=== PATIENT | female | born 1960 | race Caucasian/White ===

== ENCOUNTER 2018-06-12 14:47 | Inpatient (IN) | payer BC ==
[2018-06-12 17:39] LABS: Arterial Blood Carboxyhemoglob 5.5 % (0-1.5); Blood Gas Oxyhemoglobin 83.1 % (94-97); Blood O2 Saturation 89.2 % (92-98.5)
[2018-06-12 17:40] LABS: Absolute Lymphocytes (CBC) 2.2 K/uL (0.7-4.9); Absolute Monocytes 0.4 K/uL (0.1-1.3); Absolute Neutrophil 4.9 K/uL (1.8-8.0); Eosinophils % 2.9 % (0-4.4); Hematocrit 47.1 % (36.0-45.0); Lymphocytes % 28.3 % (15.3-44.8); MPV 8.4 fL (7.6-11.3); Monocytes % 5.1 % (3.3-12.3); RBC Red Blood Cell Count 5.25 M/uL (3.86-4.86)
[2018-06-12 17:42] LABS: Protime INR 0.99
[2018-06-12 18:02] LABS: ALT/SGPT 27 U/L (12-78); AST/SGOT 18 U/L (15-37); Albumin 3.6 g/dL (3.4-5.0); Alkaline Phosphatase 101 U/L (45-117); BUN Blood Urea Nitrogen 6 mg/dL (7-18); Bicarbonate 27 mmol/L (21-32); Bilirubin Direct < 0.1 mg/dL (0-0.2); Bilirubin Total 0.3 mg/dL (0.2-1.0); Glucose Level 129 mg/dL (74-106); Magnesium 2.2 mg/dL (1.8-2.4); NT PRO-BNP 37 pg/mL (<125); Potassium 3.3 mmol/L (3.5-5.1); Protein, Total 8.1 g/dL (6.4-8.2); Sodium Level 137 mmol/L (136-145); Troponin (Emerg Dept Use Only) < 0.02 ng/mL (0.0-0.045)
--- NOTE | 2018-06-12 18:26 | RAD REPORT ---
EXAM DESCRIPTION: RAD - Chest Single View - 06/12/2018 5:57 pm CLINICAL HISTORY: Shortness of breath COMPARISON: November 2016 TECHNIQUE: AP portable chest image was obtained 1748 hours . FINDINGS: Hazy interstitial and alveolar opacities are present in the mid and lower lung jenkins cecille lar or slightly worse than seen November 2016. Trachea is midline. Heart and vasculature are normal. No m easurable pleural effusion and no pneumothorax. No acute bony abnormality seen. No acute aortic findi ngs suspected. IMPRESSION: Interstitial and alveolar opacification in the lung jenkins slightly worse than November 2016 . Heart size and vasculature are normal. Pneumonia is favored over failure/ volume overload.
[2018-06-12] MEDS ORDERED: Levofloxacin 750mg IV 750 MG/150 ML BAG IV ONE (18:57)
[2018-06-12] MEDS ORDERED: LEVALBUTEROL 1.25 MG/3 ML NEB ONE (18:57)
--- NOTE | 2018-06-12 19:28 | ER ---
Nurse's Notes [facility] Name: Smita Beverly Age: 57 yrs Sex: Female : 1960 Arrival Date: 06/12/2018 Time: 14:50 Bed 13 Private MD: Imer Romo Diagnosis: Pneumonia due to other specified bacteria Presentation: 06/12 14:52 Presenting complaint: Patient states: i have this SOB for along time already but its hj getting worse, reports cough, congestion; denies fever and chills; reports dizziness and tightness on the upper abd; O2 sat at home per pt is 88%; on triage 94% on RA:. Transition of care: patient was not received from another setting of care. Onset of symptoms was June 12, 2018. Risk Assessment: Do you want to hurt yourself or someone else? Patient reports no desire to harm self or others. Initial Sepsis Screen: Does the patient meet any 2 criteria? No. Patient's initial sepsis screen is negative. Does the patient have a suspected source of infection? No. Patient's initial sepsis screen is negative. Care prior to arrival: None. 14:52 Method Of Arrival: Ambulatory 14:52 Acuity: ZEINA 3 hj Triage Assessment: 14:54 General: Appears in no apparent distress. uncomfortable, Behavior is calm, cooperative, hj appropriate for age. 14:55 Respiratory: Reports shortness of breath Onset: The symptoms/episode began/occurred hj gradually, the patient has mild shortness of breath. Historical: - Allergies: 14:54 No Known Allergies; hj - Home Meds: 14:54 Abilify 5 mg Oral tab 1 tab once daily [Active]; Cogentin Oral 1 mg daily [Active]; hj - PMHx: 14:54 Anxiety; Depression; hj - PSHx: 14:54 None; hj - Immunization history:: Adult Immunizations up to date. - Social history:: Smoking status: Patient uses tobacco products, Patient/guardian denies using alcohol. - Ebola Screening: : Patient negative for fever greater than or equal to 101.5 degrees Fahrenheit, and additional compatible Ebola Virus Disease symptoms Patient denies exposure to infectious person Patient denies travel to an Ebola-affected area in the 21 days before illness onset. Screenin:54 Abuse screen: Denies threats or abuse. Denies injuries from another. Nutritional hj screening: No deficits noted. Tuberculosis screening: No symptoms or risk factors identified. Fall Risk None identified. Assessment: 14:54 Pain: Complains of pain in abdomen. Cardiovascular: Rhythm is. Respiratory: Airway is hj patent Respiratory effort is even, unlabored, Breath sounds are clear. 17:00 General: Appears in no apparent distress. uncomfortable, Behavior is calm, cooperative, jl7 appropriate for age. Pain: Complains of pain in right upper quadrant and left upper quadrant Quality of pain is described as pressure, Pain began years ago. Neuro: Level of Consciousness is awake, alert, obeys commands, Oriented to person, place, time, situation. Cardiovascular: Heart tones S1 S2 present Patient's skin is warm and dry. Respiratory: Airway is patent Respiratory effort is even, unlabored, Respiratory pattern is regular, symmetrical. GI: Abdomen is round non-distended, Bowel sounds present X 4 quads. Abd is soft and non tender X 4 quads. : No signs and/or symptoms were reported regarding the genitourinary system. EENT: No signs and/or symptoms were reported regarding the EENT system. Derm: Skin is pink, warm \T\ dry. Musculoskeletal: No signs and/or symptoms reported regarding the musculoskeletal system. 19:11 Reassessment: Patient appears in no apparent distress at this time. Patient and/or cc3 family updated on plan of care and expected duration. Pain level reassessed. Patient is alert, oriented x 3, equal unlabored respirations, skin warm/dry/pink. Received this female patient from morning shift THONG Choi as a case of pneumonia; with IV cannula gauge 20 at the right ACV with ongoing IV antibiotic of Levofloxacin 750 mg infusing well, with ongoing nebulization as well. 20:15 Reassessment: Patient appears in no apparent distress at this time. Patient and/or cc3 family updated on plan of care and expected duration. Pain level reassessed. Patient is alert, oriented x 3, equal unlabored respirations, skin warm/dry/pink. 21:10 Reassessment: Patient appears in no apparent distress at this time. Patient and/or cc3 family updated on plan of care and expected duration. Pain level reassessed. Patient is alert, oriented x 3, equal unlabored respirations, skin warm/dry/pink. Room assigned to 416, called for report but was told that the nurse who will receive the patient will call me back. 21:30 Reassessment: Called again for report but was just put on hold for a long time, charge cc3 nurse Melly informed. 21:54 Reassessment: Patient appears in no apparent distress at this time. Patient and/or cc3 family updated on plan of care and expected duration. Pain level reassessed. Patient is alert, oriented x 3, equal unlabored respirations, skin warm/dry/pink. called again for report and as per staff named Hermelinda they will just call back. 22:25 Reassessment: Patient appears in no apparent distress at this time. Patient and/or cc3 family updated on plan of care and expected duration. Pain level reassessed. Patient is alert, oriented x 3, equal unlabored respirations, skin warm/dry/pink. called for report and handed over to Julia Madsen for continuity of care. 22:42 Reassessment: Patient left ER for admission vitally stable by wheelchair escorted by ED cc3 moon Goyal and the patient's . Vital Signs: 14:55 BP 110 / 68; Pulse 97; Resp 18; Temp 98.1(TE); Pulse Ox 94% on R/A; Weight 88.45 kg; hj Height 5 ft. 2 in. (157.48 cm); Pain 3/10; 17:00 BP 110 / 60; Pulse 83; Resp 21; Pulse Ox 89% on R/A; jl7 17:48 BP 103 / 72; Pulse 89; Resp 22; Pulse Ox 93% on 2 lpm NC; jl7 19:08 BP 122 / 49; Pulse 78; Resp 20 S; Pulse Ox 99% ; cc3 20:45 BP 112 / 47; Pulse 90; Resp 19; Pulse Ox 93% on 2 lpm NC; cc3 21:17 BP 109 / 51; Pulse 85; Resp 17 S; Pulse Ox 93% on 2 lpm NC; cc3 22:21 BP 110 / 65; Pulse 84; Resp 19 S; Pulse Ox 93% on 2 lpm NC; cc3 14:55 Body Mass Index 35.67 (88.45 kg, 157.48 cm) hj 19:08 ongoing nebulization cc3 ED Course: 14:50 Patient arrived in ED. mr 14:50 Imer Romo MD is Private Physician. mr 14:53 Triage completed. hj 14:55 Arm band placed on right wrist. hj 14:55 Patient has correct armband on for positive identification. Bed in low position. Call hj light in reach. Side rails up X 1. 16:32 Kayode Cordova PA is PHCP. jr8 16:32 Yaw Espana MD is Attending Physician. jr8 16:36 Steph Maddox RN is Primary Nurse. jl7 17:00 compliance monitor on. Pulse ox on. NIBP on. jl7 17:00 Initial lab(s) drawn, by me, sent to lab. Inserted saline lock: 20 gauge in right jl7 antecubital area, using aseptic technique. Blood collected. 17:55 X-ray completed. Portable x-ray completed in exam room. Patient tolerated procedure az well. 17:56 XRAY Chest (1 view) In Process Unspecified. EDMI 18:33 EKG done, by ED staff, reviewed by Kayode STEVEN. [facility] 18:45 First set of blood cultures drawn by me. [facility] 19:28 Diana Garnett MD is Hospitalizing Provider. jr8 22:25 No provider procedures requiring assistance completed. Patient admitted, IV remains in cc3 place. Administered Medications: 18:57 Drug: LevaQUIN 750 mg Volume: 150 ml; Route: IVPB; Infused Over: 90 mins; Site: right jl7 antecubital; 20:35 Follow up: Response: No adverse reaction; IV Status: Completed infusion; IV Intake: cc3 150ml 18:57 Drug: Xopenex 1.25 mg Route: Inhalation; jl7 Intake: 20:35 IV: 150ml; Total: 150ml. cc3 Outcome: 19:28 Decision to Hospitalize by Provider. jr8 22:41 Admitted to Tele accompanied by tech, family with patient, via wheelchair, room 416, cc3 with oxygen, with chart, Report called to Julia Madsen 22:41 Condition: stable 22:41 Instructed on the need for admit, Demonstrated understanding of instructions. 22:42 Patient left the ED. cc3 Signatures: Dispatcher [employer] EDMI Ann Brown Kayode Cordova PA PA [facility] Leonides Seay RN RN hj Martinez, Maria [facility] Steph Maddox RN RN jl7 Sherie Limon cc3 [place] Corrections: (The following items were deleted from the chart) 14:56 14:52 Presenting complaint: Patient states: i have this SOB for along time already but hj its getting worse, reports cough, congestion; denies fever and chills; O2 sat at home per pt is 88%; on triage 94% on RA: hj 22:24 21:30 Reassessment: Called again for report but was just put on hold for a long time. cc3 cc3 22:40 22:23 Reassessment: Patient appears in no apparent distress at this time. Patient cc3 and/or family updated on plan of care and expected duration. Pain level reassessed. Patient is alert, oriented x 3, equal unlabored respirations, skin warm/dry/pink. Called again for report was just put on hold for a long time, charge nurse Melly varghese. cc3 23:55 22:43 Reassessment: Patient left ER for admission vitally stable by wheelchair escorted cc3 by manufacturing quality technicianmoon Goyal and the patient's . cc3
--- NOTE | 2018-06-12 19:29 | EDPHYS ---
Physician Documentation [facility] Name: Smita Beverly Age: 57 yrs Sex: Female : 1960 Arrival Date: 06/12/2018 Time: 14:50 Bed 13 Private MD: Imer Romo ED Physician Yaw Espana HPI: 06/12 17:25 This 57 yrs old Female presents to ER via Ambulatory with complaints of jr8 Breathing Difficulty. 17:25 Patient stated that for the past couple of years has had difficulty breathing at rest jr8 and with exertion. Feels dizzy and falls asleep frequently. Has had syncope with symptoms in past as well. Seeing PCP and had sleep study done but has not seen cardiology, pulmonology, or neurology. Came to ED today for persistent cough that has developed . Historical: - Allergies: 14:54 No Known Allergies; hj - Home Meds: 14:54 Abilify 5 mg Oral tab 1 tab once daily [Active]; Cogentin Oral 1 mg daily [Active]; hj - PMHx: 14:54 Anxiety; Depression; hj - PSHx: 14:54 None; hj - Immunization history:: Adult Immunizations up to date. - Social history:: Smoking status: Patient uses tobacco products, Patient/guardian denies using alcohol. - Ebola Screening: : Patient negative for fever greater than or equal to 101.5 degrees Fahrenheit, and additional compatible Ebola Virus Disease symptoms Patient denies exposure to infectious person Patient denies travel to an Ebola-affected area in the 21 days before illness onset. ROS: 17:25 Eyes: Negative for injury, pain, redness, and discharge, ENT: Negative for injury, jr8 pain, and discharge, Neck: Negative for injury, pain, and swelling, Cardiovascular: Negative for chest pain, palpitations, and edema, Abdomen/GI: Negative for abdominal pain, nausea, vomiting, diarrhea, and constipation, Back: Negative for injury and pain, MS/Extremity: Negative for injury and deformity, Skin: Negative for injury, rash, and discoloration. 17:25 Respiratory: Positive for cough, shortness of breath, wheezing. 17:25 Neuro: Positive for dizziness, syncope. Exam: 17:25 Eyes: Pupils equal round and reactive to light, extra-ocular motions intact. Lids and jr8 lashes normal. Conjunctiva and sclera are non-icteric and not injected. Cornea within normal limits. Periorbital areas with no swelling, redness, or edema. ENT: Nares patent. No nasal discharge, no septal abnormalities noted. Tympanic membranes are normal and external auditory canals are clear. Oropharynx with no redness, swelling, or masses, exudates, or evidence of obstruction, uvula midline. Mucous membranes moist. Neck: Trachea midline, no thyromegaly or masses palpated, and no cervical lymphadenopathy. Supple, full range of motion without nuchal rigidity, or vertebral point tenderness. No Meningismus. Cardiovascular: Regular rate and rhythm with a normal S1 and S2. No gallops, murmurs, or rubs. Normal PMI, no JVD. No pulse deficits. Respiratory: Lungs have equal breath sounds bilaterally, clear to auscultation and percussion. No rales, rhonchi or wheezes noted. No increased work of breathing, no retractions or nasal flaring. Abdomen/GI: Soft, non-tender, with normal bowel sounds. No distension or tympany. No guarding or rebound. No evidence of tenderness throughout. Back: No spinal tenderness. No costovertebral tenderness. Full range of motion. Skin: Warm, dry with normal turgor. Normal color with no rashes, no lesions, and no evidence of cellulitis. Neuro: Awake and alert, GCS 15, oriented to person, place, time, and situation. Cranial nerves II-XII grossly intact. Motor strength 5/5 in all extremities. Sensory grossly intact. Cerebellar exam normal. Normal gait. 17:25 MS/ Extremity: Pulses equal, no cyanosis. Neurovascular intact. Full, normal range of motion. Clubbing to finger tips bilaterally Vital Signs: 14:55 BP 110 / 68; Pulse 97; Resp 18; Temp 98.1(TE); Pulse Ox 94% on R/A; Weight 88.45 kg; hj Height 5 ft. 2 in. (157.48 cm); Pain 3/10; 17:00 BP 110 / 60; Pulse 83; Resp 21; Pulse Ox 89% on R/A; jl7 17:48 BP 103 / 72; Pulse 89; Resp 22; Pulse Ox 93% on 2 lpm NC; jl7 19:08 BP 122 / 49; Pulse 78; Resp 20 S; Pulse Ox 99% ; cc3 20:45 BP 112 / 47; Pulse 90; Resp 19; Pulse Ox 93% on 2 lpm NC; cc3 21:17 BP 109 / 51; Pulse 85; Resp 17 S; Pulse Ox 93% on 2 lpm NC; cc3 22:21 BP 110 / 65; Pulse 84; Resp 19 S; Pulse Ox 93% on 2 lpm NC; cc3 14:55 Body Mass Index 35.67 (88.45 kg, 157.48 cm) hj 19:08 ongoing nebulization cc3 MDM: 16:32 Patient medically screened. [facility] 19:27 Data reviewed: vital signs, nurses notes, lab test result(s), EKG, radiologic studies, [facility] plain films, and as a result, I will admit patient. Data interpreted: Pulse oximetry: on room air is 89 %. Interpretation: hypoxia. Counseling: I had a detailed discussion with the patient and/or guardian regarding: the historical points, exam findings, and any diagnostic results supporting the discharge/admit diagnosis, lab results, radiology results, the need for further work-up and treatment in the hospital. 06/12 17:16 Order name: Basic Metabolic Panel [facility] 06/12 17:16 Order name: CBC with Diff [facility] 06/12 17:16 Order name: LFT's [facility] 06/12 17:16 Order name: Magnesium; Complete Time: 18:14 [facility] 06/12 17:16 Order name: NT PRO-BNP; Complete Time: 18:14 [facility] 06/12 17:16 Order name: PT-INR; Complete Time: 18:14 [facility] 06/12 17:16 Order name: Troponin (emerg Dept Use Only); Complete Time: 18:14 [facility] 06/12 17:16 Order name: XRAY Chest (1 view); Complete Time: 18:37 [facility] 06/12 17:16 Order name: ABG; Complete Time: 18:14 [facility] 06/12 17:16 Order name: Basic Metabolic Panel; Complete Time: 18:14 [facility] 06/12 17:16 Order name: CBC with Automated Diff; Complete Time: 18:14 [facility] 06/12 17:16 Order name: Liver (Hepatic) Function; Complete Time: 18:14 [facility] 06/12 18:38 Order name: Blood Culture Adult (2) [facility] 06/12 17:16 Order name: EKG; Complete Time: 17:16 06/12 17:16 Order name: Cardiac monitoring; Complete Time: 17:58 06/12 17:16 Order name: EKG - Nurse/Tech; Complete Time: 17:58 06/12 17:16 Order name: IV Saline Lock; Complete Time: 17:58 06/12 17:16 Order name: Labs collected and sent; Complete Time: 17:58 06/12 17:16 Order name: O2 Per Protocol; Complete Time: 17:58 06/12 17:16 Order name: O2 Sat Monitoring; Complete Time: 17:58 Administered Medications: 18:57 Drug: LevaQUIN 750 mg Volume: 150 ml; Route: IVPB; Infused Over: 90 mins; Site: right jl7 antecubital; 20:35 Follow up: Response: No adverse reaction; IV Status: Completed infusion; IV Intake: cc3 150ml 18:57 Drug: Xopenex 1.25 mg Route: Inhalation; [facility] Disposition: 06/13 15:52 Co-signature as Attending Physician, Yaw Espana MD I agree with the assessment and kdr plan of care. Disposition: 06/12/18 19:28 Hospitalization ordered by Diana Garnett for Inpatient Admission. Preliminary diagnosis is Pneumonia due to other specified bacteria. - Bed requested for Telemetry/MedSurg (Inpatient). - Status is Inpatient Admission. cc3 - Condition is Stable. - Problem is new. - Symptoms have improved. UTI on Admission? No Signatures: Dispatcher [employer] EDRI Olivia Lopez RN THONG Yaw Espana MD MD kdr Roszak, Josh, PA PA jr8 Leonides Seay RN Steph Esteban RN RN jl7 Sherie Limon cc3 Corrections: (The following items were deleted from the chart) 06/12 19:51 19:28 Hospitalization Ordered by Diana Garnett MD for Inpatient Admission. Preliminary diagnosis is Pneumonia due to other specified bacteria. Bed requested for Telemetry/MedSurg (Inpatient). Status is Inpatient Admission. Condition is Stable. Problem is new. Symptoms have improved. UTI on Admission? No. jr8 22:42 19:51 06/12/2018 19:28 Hospitalization Ordered by Diana Garnett MD for Inpatient cc3 Admission. Preliminary diagnosis is Pneumonia due to other specified bacteria. Bed requested for Telemetry/MedSurg (Inpatient). Status is Inpatient Admission. Condition is Stable. Problem is new. Symptoms have improved. UTI on Admission? No. mw
[2018-06-12] MEDS ORDERED: ONDANSETRON 4 MG/2 ML VIAL IV PRN (20:38)
[2018-06-12] MEDS ORDERED: ACETAMINOPHEN 500 MG TAB PO PRN (20:38)
[2018-06-12] MEDS ORDERED: ALBUTEROL 2.5 MG/3 ML NEB SOL NEB SCH (21:00)
[2018-06-12] MEDS ORDERED: NA CHLORIDE 0.9% 1,000 ML IV SCH (21:00)
[2018-06-13 00:14] VITALS: BMI 37.1
[2018-06-13] MEDS ORDERED: POTASSIUM 25 MEQ EFFERV TAB PO ONE (00:28)
[2018-06-13] MEDS: IPRATROPIUM BROM 0.5MG/2.5ML NEB SCH ×2 (01:55→08:01)
[2018-06-13 06:04] LABS: Urine Appearance CLOUDY; Urine Bilirubin NEGATIVE (NEG); Urine Blood NEGATIVE (NEG); Urine Color YELLOW; Urine Glucose NEGATIVE (NEG); Urine Protein NEGATIVE (NEG); Urine Urobilinogen 0.2 mg/dL (0.2-1.0)
[2018-06-13 06:11] LABS: Arterial Blood Carboxyhemoglob 2.9 % (0-1.5); Blood Gas Oxyhemoglobin 92.3 % (94-97); Blood O2 Saturation 95.8 % (92-98.5)
[2018-06-13 06:18] LABS: Absolute Lymphocytes (CBC) 2.5 K/uL (0.7-4.9); Absolute Monocytes 0.6 K/uL (0.1-1.3); Absolute Neutrophil 3.9 K/uL (1.8-8.0); Basophils % 1.2 % (0-1.3); Eosinophils % 3.1 % (0-4.4); Hematocrit 43.4 % (36.0-45.0); Lymphocytes % 34.5 % (15.3-44.8); MPV 8.1 fL (7.6-11.3); Monocytes % 8.3 % (3.3-12.3); RBC Red Blood Cell Count 4.81 M/uL (3.86-4.86)
[2018-06-13 06:19] LABS: Urine Microscopic Reflex ORDER UMIC
[2018-06-13 06:43] LABS: Albumin 3.1 g/dL (3.4-5.0); Bilirubin Total 0.2 mg/dL (0.2-1.0); Phosphorus 3.9 mg/dL (2.5-4.9); Potassium 4.4 mmol/L (3.5-5.1); Protein, Total 7.1 g/dL (6.4-8.2)
[2018-06-13 06:44] LABS: Urine Bacteria >50 /HPF (<20); Urine Culture Reflex Order REFLEXED
[2018-06-13] MEDS ORDERED: ALBUTEROL 2.5 MG/3 ML NEB SOL NEB PRN (08:41)
[2018-06-13] MEDS ORDERED: IPRATROPIUM BROM 0.5MG/2.5ML NEB PRN (08:41)
--- NOTE | 2018-06-13 08:47 | EKG ---
Test Date: 2018-06-12 Test Time: 18:05:06 Chief Enterprise Architect: DEANDRE MEASUREMENT RESULTS: Intervals: Rate: 79 IN: 130 QRSD: 82 QT: 400 QTc: 458 [place]: P: 42 IN: 130 QRS: 56 T: 38 INTERPRETIVE STATEMENTS: Normal sinus rhythm Normal ECG Compared to ECG 11/15/2016 13:10:53 Atrial premature complex(es) no longer present Electronically Signed On 06-13-18 08:46:33 INFRASTRUCTURE ADMINISTRATOR by Rush Mcfadden
--- NOTE | 2018-06-13 09:00 | RAD REPORT ---
EXAM DESCRIPTION: CT - Thorax W/ Con - 06/13/2018 7:54 am CLINICAL HISTORY: Shortness of breath, pulmonary fibrosis, COPD COMPARISON: Chest film June 12 TECHNIQUE: Dynamically enhanced 5 mm thick images of the chest were obtained during administration o f 100 mL non-ionic IV contrast. All CT scans are performed using dose optimization technique as appropriate and may include automated exposure control or mA/KV adjustment according to patient size. FINDINGS: Prominent interstitial markings are scattered throughout all lung jenkins. Patchy areas of airspace opacification and ground-glass opacification noted in the anterior mid lung jenkins and both lower lung jenkins. A 2.5 centimeter cystic cavity is seen in the lower lung field on the left. No one dense mass consolidation or clearly malignant mass seen. No pleural thickening or pleural effusion. No pneumothorax. No chest wall mass or abnormal axillary lymphadenopathy. Patient has multiple mediastinal and hilar lymph nodes up to 2.5 cm in size. No cardiomegaly or pericardial effusion. Limited upper abdomen imaging shows fatty infiltration of a partially imaged liver. IMPRESSION: Extensive interstitial lung disease with scattered alveolar opacification and ground-gla ss opacification. Multiple abnormal mediastinal and hilar lymph nodes. Patient has history of chronic interstitial lung disease. No prior CT imaging for comparison. Patient likely has an acute infectious process superimposed on chronic lung disease. Lymph nodes may be reactive ; however, repeat CT chest imaging is needed in 2-3 months to determine if lymph nodes re solve after medical management.
[2018-06-13] MEDS: NICOTINE 21 MG/PAT TD SCH (09:46)
[2018-06-13] MEDS: predniSONE 20 MG TAB PO SCH ×2 (09:47→20:29)
[2018-06-13] MEDS: ARIPiprazole 5 MG TAB PO SCH (09:47)
[2018-06-13] MEDS: FLUOXETINE 20 MG CAP PO SCH ×2 (09:47→20:29)
[2018-06-13] MEDS: BENZTROPINE 1 MG TAB PO SCH (09:47)
[2018-06-13] MEDS: FAMOTIDINE 20 MG TAB PO SCH ×2 (09:47→20:30)
--- NOTE | 2018-06-13 10:03 | P.HP ---
Certification for Inpatient Patient admitted to: Inpatient With expected LOS: >2 Midnights Patient will require the following post-hospital care: None Practitioner: I am a practitioner with admitting privileges, knowledge of patient current condition, hospital course, and medical plan of care. Services: Services provided to patient in accordance with Admission requirements found in Title 42 Section 412.3 of the Code of Federal Regulations Patient History Date of Service: 06/12/18 Reason for admission: shortness of breath History of Present Illness: Patient is a 57-year-old female who came the hospital with difficulty breathing. Patient has had a similar episode about a year ago when she was seen in the ER. She was advised to follow up with her primary care provider at that time. She was seen by her primary care provider and she was worked up for sleep apnea. she currently presents with similar complaints as a year ago. She is short of breath and having a hard time catching her breath. On physical examination she has dry crackles as well as clubbing. I believe she may have some interstitial lung disease and probably has undiagnosed idiopathic pulmonary fibrosis. She will need to be admitted to the hospital for further workup for her lung disease. Allergies No Known Allergies Allergy (Unverified 06/13/18 08:51) Home Medications: Aripiprazole [Abilify] 15 mg PO DAILY 06/12/18 Benztropine Mesylate 0.5 mg PO DAILY 06/12/18 Fluoxetine HCl [Prozac] 40 mg PO BID 06/12/18 - Past Medical/Surgical History Has patient received pneumonia vaccine in the past: No Diabetic: No -: manic depression -: COPD -: sleep apnea -: anxiety -: cyst removed from ovary when 24 yrs old - Family History Mother Medical History: Heart disease, Hypertension, Lung disease Father Medical History: Heart disease - Social History Smoking Status: Current every day smoker Alcohol use: No CD- Drugs: No Caffeine use: Yes Place of Residence: Home Review of Systems 10-point ROS is otherwise unremarkable Physical Examination - Vital Signs Temperature: 97.8 F Blood Pressure: 115/54 Pulse: 76 Respirations: 18 Pulse Ox (%): 95 - Physical Exam General: Alert, In no apparent distress, Oriented x3 HEENT: Atraumatic, PERRLA, Mucous membr. moist/pink, EOMI, Sclerae nonicteric Neck: Supple, 2+ carotid pulse no bruit, No LAD, Without JVD or thyroid abnormality Respiratory: Crackles/rales Cardiovascular: Regular rate/rhythm, Normal S1 S2, No murmurs Gastrointestinal: Normal bowel sounds, Soft and benign, Non-distended, No tenderness Musculoskeletal: No tenderness Integumentary: No rashes Neurological: Normal gait, Normal speech, Normal strength at 5/5 x4 extr, Normal tone, Sensation intact, Cranial nerves 3-12 intact, Normal affect Lymphatics: No axilla or inguinal lymphadenopathy - Studies Laboratory Data (last 24 hrs) 06/12/18 17:30: PT 11.7, INR 0.99 06/12/18 17:30: WBC 7.8, Hgb 15.8 H, Hct 47.1 H, Plt Count 301 06/12/18 17:30: Sodium 137, Potassium 3.3 L, BUN 6 L, Creatinine 0.73, Glucose 129 H, Magnesium 2.2, Total Bilirubin 0.3, AST 18, ALT 27, Alkaline Phosphatase 101 Assessment & Plan - Problems (Diagnosis) (1) Interstitial lung disease Current Visit: Yes Status: Acute (2) IPF (idiopathic pulmonary fibrosis) Current Visit: Yes Status: Acute (3) Hypoxemia Current Visit: Yes Status: Acute - Plan -nebs, steroids, and antibiotics -O2 per protocol. -she will probably benefit from high-resolution CT -outpatient pulmonary function testing -repeat chest x-ray -pulmonary consultation Discharge Plan: Home Plan to discharge in: Greater than 2 days - Advance Directives Does patient have a Living Will: No Does patient have a Durable POA for Healthcare: No - Code Status/Comfort Care Code Status Assessed: Yes Code Status: Full Code Critical Care: No Time Spent Managing PTS Care (In Minutes): 50
--- NOTE | 2018-06-13 11:32 | P.PN ---
Subjective Date of Service: 06/13/18 Primary Care Provider: Dr. Romo Chief Complaint: shortness of breath Subjective: Other (Patient slightly improved.) Physical Examination - Vital Signs Temperature: 97.8 F Blood Pressure: 115/54 Pulse: 76 Respirations: 18 Pulse Ox (%): 95 - Physical Exam General: Alert, In no apparent distress, Oriented x3, Cooperative HEENT: Atraumatic Neck: Supple Respiratory: Expiratory wheezes, Inspiratory wheezes Cardiovascular: Normal pulses, Regular rate/rhythm Gastrointestinal: Normal bowel sounds, Soft and benign, Non-distended, No tenderness, No masses, No rebound, No guarding Musculoskeletal: No erythema, No tenderness, No warmth, Clubbing Integumentary: No tenderness/swelling, No erythema, No warmth, No cyanosis, Other (Clubbing noted to fingers) Neurological: Normal speech, Normal strength at 5/5 x4 extr, Normal tone, Normal affect - Studies Laboratory Data (last 24 hrs) 06/12/18 17:30: PT 11.7, INR 0.99 06/12/18 17:30: WBC 7.8, Hgb 15.8 H, Hct 47.1 H, Plt Count 301 06/12/18 17:30: Sodium 137, Potassium 3.3 L, BUN 6 L, Creatinine 0.73, Glucose 129 H, Magnesium 2.2, Total Bilirubin 0.3, AST 18, ALT 27, Alkaline Phosphatase 101 Medications List Reviewed: Yes Assessment & Plan Discharge Plan: Home Plan to discharge in: Greater than 2 days Physician Review Additional Text: Impression: Dyspnea secondary to COPD exacerbation likely with underlying chronic interstitial lung disease with possible underlying bilateral pneumonia with noted multiple abnormal mediastinal and hilar lymph nodes likely reactive in nature Tobacco abuse Clubbing of fingers Bipolar disorder GERD Obesity, BMI 37.1 Plan: Dyspnea secondary to COPD exacerbation likely with underlying chronic interstitial lung disease with possible underlying bilateral pneumonia with noted multiple abnormal mediastinal and hilar lymph nodes likely reactive in nature: Will continue with COPD medication and steroids. Will add Levaquin for possible underlying pneumonia. CT scan reviewed. Will continue with DVT prophylaxis. Pulmonology consulted for further recommendation. Will send culture for mycobacterium. Will continue to wean off oxygen. Maintain sats above 90%. Will continue to reassess. I will turn the service over to Dr. Moraes tomorrow. I will go over the plan of care with her. Tobacco abuse: Tobacco cessation addressed in detail. Will provide nicotine patch as needed. Clubbing of fingers: This is likely related to her pulmonary lung disease. Bipolar disorder: Will continue with her medications-Abilify, benztropine, Prozac. GERD: Will provide PPI. Obesity, BMI 37.1: Will address lifestyle modification education. Time Spent Managing Pts Care (In Minutes): 55
[2018-06-13] MEDS ORDERED: Levofloxacin500mg IV 500 MG/100 ML BAG IV SCH (12:00)
[2018-06-13] MEDS ORDERED: ENOXAPARIN 40 MG/0.4 ML SQ SCH (17:00)
[2018-06-14 05:57] LABS: Absolute Lymphocytes (CBC) 1.2 K/uL (0.7-4.9); Absolute Monocytes 0.3 K/uL (0.1-1.3); Absolute Neutrophil 6.9 K/uL (1.8-8.0); Basophils % 0.4 % (0-1.3); Eosinophils % 0.1 % (0-4.4); Hematocrit 46.1 % (36.0-45.0); Lymphocytes % 14.4 % (15.3-44.8); MPV 8.5 fL (7.6-11.3); Monocytes % 3.7 % (3.3-12.3); RBC Red Blood Cell Count 5.07 M/uL (3.86-4.86)
[2018-06-14 06:02] LABS: Magnesium 2.3 mg/dL (1.8-2.4); Potassium 4.9 mmol/L (3.5-5.1)
--- NOTE | 2018-06-14 08:25 | RAD REPORT ---
EXAM DESCRIPTION: RAD - Chest Pa And Lat (2 Views) - 06/14/2018 7:48 am CLINICAL HISTORY: COPD, shortness of breath COMPARISON: June 12, 2018, November 15, 2016 TECHNIQUE: PA and lateral views of the chest were obtained. FINDINGS: The lungs are fibrotic as a baseline matching the COPD history. Interstitial pattern remai ns prominent, increased above baseline. A few scattered areas of airspace opacification are present a s well. When adjusting for technique differences and inspiration differences, chest is not substanti ally different. Heart size is normal and central vasculature is within normal limits. No pleural eff usion or pneumothorax seen. No acute bony finding noted. No aortic abnormality. IMPRESSION: Interstitial and patchy alveolar pneumonia changes are present superimposed on chronic i nterstitial lung disease. Pattern is not substantially different from June 12 imaging.
--- NOTE | 2018-06-14 08:49 | P.CNS ---
Date of Consult: 06/14/18 Primary Care Provider: Dr. Romo Chief Complaint: shortness of breath History of Present Illness: Patient is 57 years of age complaining of progressive dyspnea he has been short of breath for the past couple of years got worse over the past week complaining of excessive did time somnolence at a recent blacked out lungs feel congested heavy smoker 1 pack a day also has a chronic persistent cough no prior history of cardiac disease DT scan very abnormal shows extensive interstitial lung disease with ground-glass changes no fever weight loss and no chest pain denies any seen arthritic pains no rashes Allergies No Known Allergies Allergy (Unverified 06/13/18 08:51) Home Medications: Aripiprazole [Abilify] 15 mg PO DAILY 06/12/18 Benztropine Mesylate 0.5 mg PO DAILY 06/12/18 Fluoxetine HCl [Prozac] 40 mg PO BID 06/12/18 - Past Medical/Surgical History Diabetic: No -: manic depression -: COPD -: sleep apnea -: anxiety -: cyst removed from ovary when 24 yrs old - Family History Mother Medical History: Heart disease, Hypertension, Lung disease Father Medical History: Heart disease - Social History Smoking Status: Current every day smoker Alcohol use: No CD- Drugs: No Caffeine use: Yes Place of Residence: Home Review of Systems 10-point ROS is otherwise unremarkable General: Weakness Respiratory: Cough, Shortness of Breath Physical Examination Temp Pulse Resp BP Pulse Ox 97 F 78 18 144/78 H 97 06/14/18 04:00 06/14/18 04:00 06/14/18 04:00 06/14/18 04:00 06/14/18 04:00 General: Alert, In no apparent distress, Oriented x3 HEENT: Atraumatic Neck: Supple Respiratory: Other (Patient has extensive bilateral crackles) Cardiovascular: No edema, Regular rate/rhythm Gastrointestinal: Normal bowel sounds, Soft and benign Musculoskeletal: No clubbing, No swelling Integumentary: No rashes, No breakdown - Problems (1) IPF (idiopathic pulmonary fibrosis) Current Visit: Yes Status: Acute Plan: Patient is 57 years of age admitted with a chronic progressive dyspnea with a cough she has extensive interstitial changes with ground-glass changes on both sides a heavy smoker I suspect that she has idiopathic pulmonary fibrosis of ordered a high-resolution CT scan of the chest patient was mildly hypoxic on admission agree with low-dose prednisone 10 mg twice a day for at least 2 weeks patient can be discharged home need a follow up as an outpatient possible bronchoscopy patient has some interstitial changes in November of [address] scan done the qualify for home O2 patient also probably has underlying COPD will need a bronchodilator consider Advair or Symbicort for now and I will arrange for her to follow up with me in 1 or 2 weeks he will need outpatient pulmonary function testing
--- NOTE | 2018-06-14 10:35 | RAD REPORT ---
EXAM DESCRIPTION: CT - Thorax Wo Con CLINICAL HISTORY: Chest pain Interstitial lung disease COMPARISON: Thorax W/ Con dated 06/13/2018 FINDINGS: Noncontrast high-resolution CT chest was performed. Centrilobular emphysema is present. Prominent subpleural interstitial lung opacities are noted greate st in the periphery of both lungs and with lower lobe predominance. Mild bronchiectasis is seen, like ly related to traction. This appears most severe in the lower lobes. Prominent air cyst is present in the left lower lobe measuring 22 mm. 9 mm air cyst is seen in the lingula. Mild mediastinal and hilar lymphadenopathy is present, the pretracheal region measuring 16 mm and in both hilar regions measuring up to 22 mm. A mediastinal mass is not seen. No pleural or pericardial f luid. No concerning bony finding. All CT scans are performed using dose optimization technique as appropriate and may include automated exposure control or mA/KV adjustment according to patient size. IMPRESSION: The findings are suspicious for UIP.Other differential consideration would include sarco idosis with fibrosis.
[2018-06-14] MEDS: NICOTINE 21 MG/PAT TD SCH (11:12)
[2018-06-14] MEDS: ARIPiprazole 5 MG TAB PO SCH (11:13)
[2018-06-14] MEDS: BENZTROPINE 1 MG TAB PO SCH (11:14)
[2018-06-14] MEDS: FLUOXETINE 20 MG CAP PO SCH (11:16)
[2018-06-14] MEDS: FAMOTIDINE 20 MG TAB PO SCH (11:16)
[2018-06-14] MEDS: predniSONE 20 MG TAB PO SCH (11:17)
[2018-06-14 12:11] VITALS: BP 132/73; TEMP 97.9
[2018-06-14 12:24] VITALS: O2SAT 95
--- NOTE | 2018-06-14 19:06 | P.DS ---
Admission Date: 06/12/18 Discharge Date: 06/14/18 Primary Care Provider: Dr. Romo Disposition: ROUTINE DISCHARGE Discharge Condition: GOOD Reason for Admission: shortness of breath - Problems (1) Hypoxemia Status: Acute (2) IPF (idiopathic pulmonary fibrosis) Status: Acute (3) Interstitial lung disease Status: Acute Brief History of Present Illness: Patient is a 57-year-old female who came the hospital with difficulty breathing. Patient has had a similar episode about a year ago when she was seen in the ER. She was advised to follow up with her primary care provider at that time. She was seen by her primary care provider and she was worked up for sleep apnea. she currently presents with similar complaints as a year ago. She is short of breath and having a hard time catching her breath. On physical examination she has dry crackles as well as clubbing. I believe she may have some interstitial lung disease and probably has undiagnosed idiopathic pulmonary fibrosis. She will need to be admitted to the hospital for further workup for her lung disease. Hospital Course: Overall during the hospital stay patient remained stable Patient was initially admitted to the hospital for shortness of breath. Was initially started on DuoNeb and steroid here in the hospital. Had marked improvement in her symptoms. Pulmonology was consulted who recommended the patient be continued on steroids along with duo nebs. Patient most likely after reviewing imaging has pulmonary fibrosis. Pulmonology at that time recommended the patient can be discharged home under stable condition once her hypoxemia resolved. Patient did well overall was able to completely weaned off of oxygen and was able to ambulate without oxygen and thus was discharged home under stable condition was given a prescription for prednisone 10 mg for her pulmonary fibrosis. Patient will be scheduled for outpatient bronchoscopy by pulmonology and will have a outpatient appointment with pulmonology in 2 weeks. Patient demonstrated understanding regarding the plan and thus was discharged home under stable condition Vital Signs/Physical Exam: Temp Pulse Resp BP Pulse Ox 97.9 F 69 16 132/73 95 06/14/18 12:00 06/14/18 12:00 06/14/18 12:00 06/14/18 12:06/14/18 12:00 General: Alert, In no apparent distress HEENT: Atraumatic, PERRLA, EOMI Neck: Supple, JVD not distended Respiratory: Clear to auscultation bilaterally, Normal air movement Cardiovascular: Regular rate/rhythm, Normal S1 S2 Gastrointestinal: Normal bowel sounds, No tenderness Musculoskeletal: No tenderness Integumentary: No rashes Neurological: Normal speech, Normal tone, Normal affect Lymphatics: No axilla or inguinal lymphadenopathy Laboratory Data at Discharge: WBC 8.5 K/uL (4.3-10.9) D 06/14/18 05:15 Hgb 15.4 g/dL (12.0-15.0) H 06/14/18 05:15 Hct 46.1 % (36.0-45.0) H 06/14/18 05:15 Plt Count 303 K/uL (152-406) 06/14/18 05:15 PT 11.7 SECONDS (9.5-12.5) 06/12/18 17:30 INR 0.99 06/12/18 17:30 Sodium 140 mmol/L (136-145) 06/14/18 05:15 Potassium 4.9 mmol/L (3.5-5.1) 06/14/18 05:15 BUN 11 mg/dL (7-18) 06/14/18 05:15 Creatinine 0.73 mg/dL (0.55-1.3) 06/14/18 05:15 Glucose 125 mg/dL (74-106) H 06/14/18 05:15 Phosphorus 3.9 mg/dL (2.5-4.9) 06/13/18 06:10 Magnesium 2.3 mg/dL (1.8-2.4) 06/14/18 05:15 Total Bilirubin 0.2 mg/dL (0.2-1.0) 06/13/18 06:10 AST 15 U/L (15-37) 06/13/18 06:10 ALT 25 U/L (12-78) 06/13/18 06:10 Alkaline Phosphatase 82 U/L (45-117) 06/13/18 06:10 Triglycerides 132 mg/dL (<150) 06/13/18 06:10 Cholesterol 151 mg/dL (<200) 06/13/18 06:10 HDL Cholesterol 44 mg/dL (40-60) 06/13/18 06:10 Cholesterol/HDL Ratio 3.43 06/13/18 06:10 Home Medications: Aripiprazole [Abilify] 15 mg PO DAILY 12/31/18 Benztropine Mesylate 0.5 mg PO DAILY 06/12/18 Fluoxetine HCl [Prozac] 40 mg PO BID 06/12/18 Budesonide/Formoterol Fumarate [Symbicort 160-4.5 Mcg Inhaler] 1 puff IH BID #1 hfa.aer.ad 06/14/18 predniSONE [Prednisone*] 10 mg PO BID #30 tab 06/14/18 New Medications: Budesonide/Formoterol Fumarate [Symbicort 160-4.5 Mcg Inhaler] 1 puff IH BID #1 hfa.aer.ad predniSONE [Prednisone*] 10 mg PO BID #30 tab Diet: Regular Activity: Ad wen Followup: Anand Goodson MD [ACTIVE - CAN ADMIT] - 1 Week (call to schedule an appointment )
[2018-06-16 12:27] LABS: HIV 1/2 Antibody Diff Not indicated.; HIV AG/AB 4TH GEN Non-reactive (Non-reactive)
== END 2018-06-14 13:04 | disposition home or self-care (01) | DRG 197 ==
LOC: ER 14:47 → ERHOLD 20:04 → 4TH 22:30
PROVIDERS: ADMIT Hospitalist; ATTEND Family Medicine
DX: J84.10 Pulmonary fibrosis, unspecified (principal); J44.1 Chronic obstructive pulmonary disease with (acute) exacerbation; G47.30 Sleep apnea, unspecified; R09.02 Hypoxemia; R68.3 Clubbing of fingers; F31.9 Bipolar disorder, unspecified; K21.9 Gastro-esophageal reflux disease without esophagitis; E66.9 Obesity, unspecified; F17.200 Nicotine dependence, unspecified, uncomplicated; Z68.37 Body mass index [BMI] 37.0-37.9, adult
CPT/HCPCS: 36415; 71045; 71046; 71250; 71260; 80048; 80053; 80061; 80076; 81003; 81015; 82805; 83735; 83880; 84100; 84484; 85025; 85610; 87040; 87086; 87088; 87389; 93005; 94640; 94760; 96365; 96366; 99285; G0433; J1650; J7030; J7512; Q9967

== ENCOUNTER 2018-06-25 20:33 | Emergency (ER) | payer BC ==
--- NOTE | 2018-06-25 21:24 | RAD REPORT ---
EXAM DESCRIPTION: CT - Head Brain Wo Cont - 06/25/2018 9:18 pm CLINICAL HISTORY: right eye decreased vision Headache, drowsiness COMPARISON: No comparisons TECHNIQUE: All CT scans are performed using dose optimization technique as appropriate and may inclu de automated exposure control or mA/KV adjustment according to patient size. FINDINGS: No intracranial hemorrhage, hydrocephalus or extra-axial fluid collection.No areas of brai n edema or evidence of midline shift. The paranasal sinuses and mastoids are clear. The calvarium is intact. IMPRESSION: No acute intracranial abnormality.
[2018-06-25 23:16] LABS: Absolute Lymphocytes (CBC) 1.7 K/uL (0.7-4.9); Absolute Monocytes 0.6 K/uL (0.1-1.3); Basophils % 0.4 % (0-1.3); Eosinophils % 0.2 % (0-4.4); Hematocrit 45.7 % (36.0-45.0); Lymphocytes % 13.7 % (15.3-44.8); MPV 8.4 fL (7.6-11.3); Monocytes % 4.7 % (3.3-12.3); RBC Red Blood Cell Count 5.13 M/uL (3.86-4.86)
[2018-06-25 23:29] LABS: Protime INR 0.88
[2018-06-25 23:35] LABS: C-Reactive Protein 4.47 mg/L (<3.00); Potassium 4.3 mmol/L (3.5-5.1)
[2018-06-26] MEDS ORDERED: NA CHLORIDE 0.9% 500 ML ONE (00:36)
--- NOTE | 2018-06-26 01:17 | EDPHYS ---
Physician Documentation [facility] Name: Smita Beverly Age: 57 yrs Sex: Female : 1960 Arrival Date: 06/25/2018 Time: 20:38 Bed 8 Private MD: Imer Romo ED Physician Gilberto Eid HPI: 06/25 23:53 This 57 yrs old Female presents to ER via Wheelchair with complaints of S/S rn of Possible Stroke. 23:53 This 57 yrs old Female presents to ER via Wheelchair with complaints of rn blurred vision, knee pain. 23:53 The patient's problem is reported as visual difficulty. rn 23:55 The patient is experiencing blurred vision, to the right eye, caused by an unknown rn mechanism. Onset: The symptoms/episode began/occurred just prior to arrival. Duration: the symptoms are continuous. Aggravated by nothing. Alleviated by nothing. Severity of symptoms: At their worst the symptoms were mild in the emergency department the symptoms are unchanged. The patient has not experienced similar symptoms in the past. The patient has been recently seen by a physician:. 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 Denies focal weakness/paresthesias. Denies headache. No vomiting. no chest pain/sob/abd pain. . Historical: - Allergies: 21:13 No Known Allergies; lp1 - Home Meds: 21:13 Abilify 15 mg oral tab once daily [Active]; Prozac 40 mg Oral cap 2 caps once daily lp1 [Active]; Cogentin Oral 2 mg daily [Active]; Prilosec Oral [Active]; Prednisone Oral 2 times per day [Active]; - PMHx: 21:13 Anxiety; Depression; Pulmonary Fibrosis; lp1 - PSHx: 21:13 None; lp1 - Immunization history:: Adult Immunizations up to date. - Social history:: Smoking status: Patient uses tobacco products, smokes one pack cigarettes per day. - Ebola Screening: : No symptoms or risks identified at this time. - Family history:: not pertinent. - Hospitalizations: : The patient was recently seen at [facility]. ROS: 23:55 Constitutional: Negative for fever, chills, and weight loss, Eyes: + blurred vision rn right eye ENT: Negative for injury, pain, and discharge, Neck: Negative for injury, pain, and swelling, Cardiovascular: Negative for chest pain, palpitations, and edema, Respiratory: Negative for shortness of breath, cough, wheezing, and pleuritic chest pain, Abdomen/GI: Negative for abdominal pain, nausea, vomiting, diarrhea, and constipation, MS/Extremity: Negative for injury and deformity, Skin: Negative for injury, rash, and discoloration, Neuro: Negative for headache, weakness, numbness, tingling, and seizure. Exam: 23:55 Constitutional: This is a well developed, well nourished patient who is awake, alert, rn and in no acute distress. Appears anxious Head/Face: Normocephalic, atraumatic. Eyes: Pupils equal round and reactive to light, extra-ocular motions intact. Lids and lashes normal. Conjunctiva and sclera are non-icteric and not injected. Cornea within normal limits. Periorbital areas with no swelling, redness, or edema. Visual jenkins intact with area of blurred vision left eye, temporal side. Cardiovascular: Regular rate and rhythm with a normal S1 and S2. No gallops, murmurs, or rubs. No JVD. No pulse deficits. Respiratory: Lungs have equal breath sounds bilaterally, clear to auscultation Abdomen/GI: Soft, non-tender, with normal bowel sounds. No distension or tympany. No guarding or rebound. No evidence of tenderness throughout. MS/ Extremity: Pulses equal, no cyanosis. Neurovascular intact. Full, normal range of motion. Equal circumference. Neuro: Awake and alert, GCS 15, oriented to person, place, time, and situation. Cranial nerves II-XII grossly intact. Motor strength 5/5 in all extremities. Sensory grossly intact. Cerebellar exam normal. Normal gait. Vital Signs: 21:10 BP 145 / 76; Pulse 81; Resp 15; Temp 98.1(TE); Pulse Ox 94% on R/A; Weight 90.72 kg; lp1 Height 5 ft. 2 in. (157.48 cm); Pain 3/10; 21:32 Pulse Ox 88% on R/A; lp1 21:32 BP 131 / 77; Pulse 83; Resp 20; Pulse Ox 94% on 2 lpm NC; lp1 23:02 BP 130 / 54; Pulse 83; Resp 19; Pulse Ox 93% on 2 lpm NC; tl2 06/26 00:30 BP 102 / 59; Pulse 78; Resp 19; Pulse Ox 97% on R/A; lp1 06/25 21:10 Body Mass Index 36.58 (90.72 kg, 157.48 cm) lp1 NIH Stroke Scale Scores: 06/25 21:14 NIHSS Score: 0 lp1 21:15 NIHSS Score: 0 lp1 MDM: 20:46 Patient medically screened. rn 06/26 01:14 Differential diagnosis: uveitis, retinal detachment, ocular migraine, TIA, CVA, rn arteritis. Data reviewed: vital signs, nurses notes, lab test result(s), radiologic studies, CT scan, and as a result, I will discharge patient. Counseling: I had a detailed discussion with the patient and/or guardian regarding: the historical points, exam findings, and any diagnostic results supporting the discharge/admit diagnosis, lab results, the need for outpatient follow up, to return to the emergency department if symptoms worsen or persist or if there are any questions or concerns that arise at home. Special discussion: I discussed with the patient/guardian in detail that at this point there is no indication for admission to the hospital. It is understood, however, that if the symptoms persist or worsen the patient needs to return immediately for re-evaluation. Based on the history and exam findings, there is no indication for further emergent testing or inpatient evaluation. I discussed with the patient/guardian the need to see the opthamologist for further evaluation of the symptoms. ED course: Vision now back to baseline, normal ct head and ct angiogram. Will dc home with ophtho w/u. . 06/25 21:01 Order name: Basic Metabolic Panel; Complete Time: 23:42 rn 06/25 21: Order name: CBC with Diff; Complete Time: 00:16 rn 06/25 21: Order name: CPK; Complete Time: 23:42 rn 06/25 21: Order name: Protime (+inr); Complete Time: 23:34 rn 06/25 21: Order name: Ptt, Activated; Complete Time: 23:34 rn 06/25 21:01 Order name: ESR; Complete Time: 00:16 rn 06/25 21:01 Order name: CT Head Brain wo Cont; Complete Time: 21:30 rn 06/25 21:01 Order name: Cardiac monitoring; Complete Time: 21:18 rn 06/25 21:01 Order name: EKG - Nurse/Tech; Complete Time: 21:33 rn 06/25 21:01 Order name: IV Saline Lock; Complete Time: 21:18 rn 06/25 21:01 Order name: CRP; Complete Time: 23:42 rn 06/25 23:43 Order name: CT Head Angio rn 06/25 21:01 Order name: Labs collected and sent; Complete Time: 21:18 rn 06/25 21: Order name: NPO; Complete Time: 21:18 rn 06/25 21:01 Order name: O2 Per Protocol; Complete Time: 21:18 rn 06/25 21:01 Order name: O2 Sat Monitoring; Complete Time: 21:19 rn Administered Medications: 00:31 Drug: NS 0.9% 500 ml Route: IV; Rate: bolus; Site: right antecubital; tl2 01:00 Follow up: IV Status: Completed infusion lp1 Disposition: 06/26/18 01:16 Discharged to Home. Impression: Blurred vision. - Condition is Stable. - Discharge Instructions: Blurred Vision, Adult. - Medication Reconciliation Form, Thank You Letter, Antibiotic Education, Prescription Opioid Use form. - Follow up: Private Physician; When: As needed; Reason: Recheck today's complaints, Re-evaluation by your physician. - Problem is new. - Symptoms have improved. NIH Stroke Scale - NIH Stroke Score Date: 06/25/2018 Time: 21:14 Total Score = 0 1a. Level of Consciousness (LOC) - 0(Alert) 1b. Level of Consciousness (LOC) (Year \\T\\ Age) - 0(Both) 1c. LOC Commands (Open \\T\\ Closes Eyes/Wound Nurse) - 0(Both) 2. Best Gaze (Lateral Gaze Paresis) - 0(Normal) 3. Visual Field Loss - 0(No visual loss) 4. Facial Palsy - 0(Normal) 5a. Left Arm: Motor (10-second hold) - 0(No drift) 5b. Right Arm: Motor (10-second hold) - 0(No drift) 6a. Left Leg: Motor (5-second hold - always test supine) - 0(No drift) 6b. Right Leg: Motor (5-second hold - always test supine) - 0(No drift) 7. Limb Ataxia (finger/nose \\T\\ heel/costello - test with eyes open) - 0(Absent) 8. Sensory Loss (pinprick arms/legs/face) - 0(Normal) 9. Best Language: Aphasia (description/naming/reading) - 0(No aphasia) 10. Dysarthria (speech clarity - read or repeat words) - 0(Normal) 11. Extinction and Inattention (visual/tactile/auditory/spatial/personal) - 0(No abnormality) Initials: lp1 NIH Stroke Scale - NIH Stroke Score Date: 06/25/2018 Time: 21:15 Total Score = 0 1a. Level of Consciousness (LOC) - 0(Alert) 1b. Level of Consciousness (LOC) (Year \\T\\ Age) - 0(Both) 1c. LOC Commands (Open \\T\\ Closes Eyes/Wound Nurse) - 0(Both) 2. Best Gaze (Lateral Gaze Paresis) - 0(Normal) 3. Visual Field Loss - 0(No visual loss) 4. Facial Palsy - 0(Normal) 5a. Left Arm: Motor (10-second hold) - 0(No drift) 5b. Right Arm: Motor (10-second hold) - 0(No drift) 6a. Left Leg: Motor (5-second hold - always test supine) - 0(No drift) 6b. Right Leg: Motor (5-second hold - always test supine) - 0(No drift) 7. Limb Ataxia (finger/nose \\T\\ heel/costello - test with eyes open) - 0(Absent) 8. Sensory Loss (pinprick arms/legs/face) - 0(Normal) 9. Best Language: Aphasia (description/naming/reading) - 0(No aphasia) 10. Dysarthria (speech clarity - read or repeat words) - 0(Normal) 11. Extinction and Inattention (visual/tactile/auditory/spatial/personal) - 0(No abnormality) Initials: lp1 Signatures: Dispatcher [employer] EDGilberto Barton MD MD rn Pena, Laura RN RN lp1 Caity Marshall RN RN tl2 Corrections: (The following items were deleted from the chart) 01:47 01:16 06/26/2018 01:16 Discharged to Home. Impression: Blurred vision. lp1 Condition is Stable. Forms are Medication Reconciliation Form, Thank You Letter, Antibiotic Education, Prescription Opioid Use. Follow up: Private Physician; When: As needed; Reason: Recheck today's complaints, Re-evaluation by your physician. Problem is new. Symptoms have improved. rn
--- NOTE | 2018-06-26 01:17 | ER ---
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 Transition of care: patient was not received from another setting of care. Onset of symptoms was June 25, 2018 at 20:00. Risk Assessment: Do you want to hurt yourself or someone else? Patient reports no desire to harm self or others. Initial Sepsis Screen: Does the patient meet any 2 criteria? No. Patient's initial sepsis screen is negative. Does the patient have a suspected source of infection? No. Patient's initial sepsis screen is negative. Care prior to arrival: None. 21:06 Method Of Arrival: Wheelchair lp1 21:06 Acuity: ZEINA 3 lp1 Triage Assessment: 21:14 The onset of the patients symptoms was June 25, 2018 at 20:00. General: Appears in lp1 no apparent distress. Behavior is anxious. 21:15 General: Patient drinking water on arrival. lp1 Historical: - Allergies: 21:13 No Known Allergies; lp1 - Home Meds: 21:13 Abilify 15 mg oral tab once daily [Active]; Prozac 40 mg Oral cap 2 caps once daily lp1 [Active]; Cogentin Oral 2 mg daily [Active]; Prilosec Oral [Active]; Prednisone Oral 2 times per day [Active]; - PMHx: 21:13 Anxiety; Depression; Pulmonary Fibrosis; lp1 - PSHx: 21:13 None; lp1 - Immunization history:: Adult Immunizations up to date. - Social history:: Smoking status: Patient uses tobacco products, smokes one pack cigarettes per day. - Ebola Screening: : No symptoms or risks identified at this time. - Family history:: not pertinent. - Hospitalizations: : The patient was recently seen at [facility]. Screenin:14 Abuse screen: Denies threats or abuse. Denies injuries from another. Nutritional lp1 screening: No deficits noted. Tuberculosis screening: No symptoms or risk factors identified. Fall Risk None identified. Assessment: 21:15 General: Appears in no apparent distress. Behavior is anxious. Pain: Complains of pain lp1 in right knee, left knee Pain radiates to right thigh, left thigh. Neuro: Level of Consciousness is awake, alert, obeys commands, Oriented to person, place, time, situation, Moves all extremities. Full function Gait is steady, Speech is normal, Facial symmetry appears normal, Pupils are PERRLA, Intact. Cardiovascular: Patient's skin is warm and dry. Respiratory: Respiratory effort is even, unlabored, Breath sounds are clear bilaterally. GI: No signs and/or symptoms were reported involving the gastrointestinal system. : No signs and/or symptoms were reported regarding the genitourinary system. EENT: Reports pain when swallowing. Derm: Skin is intact, Skin is dry, Skin is normal. Musculoskeletal: Circulation, motion, and sensation intact. 21:30 Reassessment: Patient returned from CT. lp1 22:30 Reassessment: Patient appears in no apparent distress at this time. Patient and/or lp1 family updated on plan of care and expected duration. Pain level reassessed. Patient states feeling better. 23:30 Reassessment: Patient appears in no apparent distress at this time. General: Appears in lp1 no apparent distress. Behavior is calm. Neuro: Level of Consciousness is awake, alert, obeys commands. 06/26 00:30 Reassessment: Patient appears in no apparent distress at this time. Patient and/or lp1 family updated on plan of care and expected duration. Pain level reassessed. Patient is alert, oriented x 3, equal unlabored respirations, skin warm/dry/pink. Patient states symptoms have improved. Vital Signs: 06/25 21:10 BP 145 / 76; Pulse 81; Resp 15; Temp 98.1(TE); Pulse Ox 94% on R/A; Weight 90.72 kg; lp1 Height 5 ft. 2 in. (157.48 cm); Pain 3/10; 21:32 Pulse Ox 88% on R/A; lp1 21:32 BP 131 / 77; Pulse 83; Resp 20; Pulse Ox 94% on 2 lpm NC; lp1 23:02 BP 130 / 54; Pulse 83; Resp 19; Pulse Ox 93% on 2 lpm NC; tl2 06/26 00:30 BP 102 / 59; Pulse 78; Resp 19; Pulse Ox 97% on R/A; lp1 06/25 21:10 Body Mass Index 36.58 (90.72 kg, 157.48 cm) lp1 NIH Stroke Scale Scores: 06/25 21:14 NIHSS Score: 0 lp1 21:15 NIHSS Score: 0 lp1 ED Course: 20:38 Patient arrived in ED. es 20:38 Imer Romo MD is Private Physician. es 20:46 Gilberto Eid MD is Attending Physician. rn 21:05 Selina Obregon, THONG is Primary Nurse. lp1 21:10 Triage completed. lp1 21:10 Arm band placed on right wrist. lp1 21:17 CT Head Brain wo Cont In Process Unspecified. EDMS 21:17 Patient has correct armband on for positive identification. Placed in gown. Bed in low lp1 position. Call light in reach. seasoning mixer on. Pulse ox on. NIBP on. 21:18 Inserted saline lock: 20 gauge in right antecubital area, using aseptic technique. lt1 21:18 Initial lab(s) drawn, by me, sent to lab. lt1 21:39 EKG done, by ED staff. lt1 06/26 00:[address] via wheelchair. kw1 00:53 CT Head Angio In Process Unspecified. EDMS 00:59 CT completed. Patient tolerated procedure well. Patient moved back from CT. kw1 01:30 No provider procedures requiring assistance completed. IV discontinued, No lp1 redness/swelling at site. Pressure dressing applied. Administered Medications: 00:31 Drug: NS 0.9% 500 ml Route: IV; Rate: bolus; Site: right antecubital; tl2 01:00 Follow up: IV Status: Completed infusion lp1 Outcome: 01:16 Discharge ordered by . rn 01:30 Discharged to home ambulatory, with significant other. lp1 01:30 Condition: good 01:30 Discharge instructions given to patient, significant other, Instructed on discharge instructions, follow up and referral plans. Demonstrated understanding of instructions, follow-up care. 01:30 Patient left the ED. lp1 NIH Stroke Scale - NIH Stroke Score Date: 06/25/2018 Time: 21:14 Total Score = 0 1a. Level of Consciousness (LOC) - 0(Alert) 1b. Level of Consciousness (LOC) (Year \\T\\ Age) - 0(Both) 1c. LOC Commands (Open \\T\\ Closes Eyes/Mechanical Lead) - 0(Both) 2. Best Gaze (Lateral Gaze Paresis) - 0(Normal) 3. Visual Field Loss - 0(No visual loss) 4. Facial Palsy - 0(Normal) 5a. Left Arm: Motor (10-second hold) - 0(No drift) 5b. Right Arm: Motor (10-second hold) - 0(No drift) 6a. Left Leg: Motor (5-second hold - always test supine) - 0(No drift) 6b. Right Leg: Motor (5-second hold - always test supine) - 0(No drift) 7. Limb Ataxia (finger/nose \\T\\ heel/costello - test with eyes open) - 0(Absent) 8. Sensory Loss (pinprick arms/legs/face) - 0(Normal) 9. Best Language: Aphasia (description/naming/reading) - 0(No aphasia) 10. Dysarthria (speech clarity - read or repeat words) - 0(Normal) 11. Extinction and Inattention (visual/tactile/auditory/spatial/personal) - 0(No abnormality) Initials: lp1 NIH Stroke Scale - NIH Stroke Score Date: 06/25/2018 Time: 21:15 Total Score = 0 1a. Level of Consciousness (LOC) - 0(Alert) 1b. Level of Consciousness (LOC) (Year \\T\\ Age) - 0(Both) 1c. LOC Commands (Open \\T\\ Closes Eyes/Mechanical Lead) - 0(Both) 2. Best Gaze (Lateral Gaze Paresis) - 0(Normal) 3. Visual Field Loss - 0(No visual loss) 4. Facial Palsy - 0(Normal) 5a. Left Arm: Motor (10-second hold) - 0(No drift) 5b. Right Arm: Motor (10-second hold) - 0(No drift) 6a. Left Leg: Motor (5-second hold - always test supine) - 0(No drift) 6b. Right Leg: Motor (5-second hold - always test supine) - 0(No drift) 7. Limb Ataxia (finger/nose \\T\\ heel/costello - test with eyes open) - 0(Absent) 8. Sensory Loss (pinprick arms/legs/face) - 0(Normal) 9. Best Language: Aphasia (description/naming/reading) - 0(No aphasia) 10. Dysarthria (speech clarity - read or repeat words) - 0(Normal) 11. Extinction and Inattention (visual/tactile/auditory/spatial/personal) - 0(No abnormality) Initials: lp1 Signatures: Dispatcher [employer] EDAnitha Norris Roman, MD MD rn Pena, Laura, RN RN lp1 Caity Marshall RN RN 2 Della Raman1 Amanda Waggoner 1 Corrections: (The following items were deleted from the chart) 06/25 21:34 21:32 Pulse Ox 94% 2 lpm Nasal Cannula; lp1 lp1 06/26 01:48 01:47 Patient left the ED. lp1 lp1
[2018-06-26 02:57] VITALS: TEMP 98.1
[2018-06-26 03:01] VITALS: BP 102/59; O2SAT 97
--- NOTE | 2018-06-26 08:29 | RAD REPORT ---
EXAM DESCRIPTION: CT - Head angio - 06/26/2018 6:59 am CLINICAL HISTORY: decreased vision right eye Headache COMPARISON: Head Brain Wo Cont dated 06/25/2018 TECHNIQUE: CT head without contrast CT angiography of the head was performed with MIPs. All CT scans are performed using dose optimization technique as appropriate and may include automated exposure control or mA/KV adjustment according to patient size. FINDINGS: No acute hemorrhage, hydrocephalus or extra-axial fluid collection. No midline shift. No evidence of aneurysm is detected. No flow-limiting stenosis or vascular malformation identified. Antegrade flow is seen in the vertebral arteries. The vertebral arteries are codominant. The visualized dural venous sinuses are patent. IMPRESSION: No significant flow abnormality is detected.
--- NOTE | 2018-06-26 12:00 | EKG ---
Test Date: 2018-06-25 Test Time: 21:32:12 Adjuster Electrical Contacts: [facility] MEASUREMENT RESULTS: Intervals: Rate: 86 GA: 122 QRSD: 74 QT: 370 QTc: 442 [place]: P: 43 GA: 122 QRS: 51 T: 42 INTERPRETIVE STATEMENTS: Normal sinus rhythm Normal ECG Compared to ECG 06/12/2018 18:05:06 No significant changes Electronically Signed On 06-26-18 11:59:44 OUTDOOR ADVENTURE INSTRUCTOR by Rush Mcfadden
== END 2018-06-26 01:47 | disposition home or self-care (01) ==
LOC: ER 20:33
DX: H53.8 Other visual disturbances (principal); F41.8 Other specified anxiety disorders
CPT/HCPCS: 36415; 70450; 70496; 80048; 82550; 85025; 85610; 85652; 85730; 86140; 93005; 99285; Q9967

== ENCOUNTER 2018-08-08 06:56 | Day surgery (SDC) | payer BC ==
--- OUTSIDE RECORDS SUMMARY | 2018-08-08 06:58 | XMS REPORT ---
:1960 [facility] Address [address] [place] [address] Dr. Dey[address] [place] [id number] Care Team Providers Name Role Phone Unavailable Unavailable Unavailable Payers Payer Name Policy Type Policy Number Effective Date Expiration Date Problems This patient has no known problems. Allergies, Adverse Reactions, Alerts This patient has no known allergies or adverse reactions. Medications This patient has no known medications.
[2018-08-08] MEDS ORDERED: Phenylephrine HCl 10 MG/ML 1 ML VIAL ONE (07:30)
[2018-08-08] MEDS ORDERED: Ringers Lactate 1,000 ML IV ONE (07:31)
[2018-08-08] MEDS ORDERED: LIDOCAINE 1% MPF 30 ML VIAL ONE (07:31)
[2018-08-08] MEDS ORDERED: LIDOCAINE VISCOUS 2% SOLN 15 ML UDC ONE (07:31)
[2018-08-08] MEDS ORDERED: GLYCOPYRROLATE 0.2 MG/ML SYR ONE (07:31)
[2018-08-08] MEDS: LIDOCAINE 4% TOP SOLUTION ONE ×2 (07:35→07:55)
[2018-08-08] MEDS ORDERED: MIDAZOLAM HCL 2 MG/2 ML INJ ONE (07:36)
[2018-08-08] MEDS ORDERED: FENTANYL CITR 100 MCG/2 ML ONE (07:36)
[2018-08-08] MEDS ORDERED: PROPOFOL 200 MG/20 ML VIAL IV ONE (07:36)
[2018-08-08] MEDS ORDERED: LIDOCAINE 1% MPF 5 ML VIAL ONE (07:37)
[2018-08-08] MEDS ORDERED: HYDROCORTISONE SUC 100 MG INJ ONE (07:38)
[2018-08-08 09:00] VITALS: TEMP 98.1
--- NOTE | 2018-08-08 09:40 | RAD REPORT ---
EXAM DESCRIPTION: RAD - FLUORO-GUIDE FOR BRONCH UPT1HR - 08/08/2018 8:45 am CLINICAL HISTORY: Shortness of breath. Right lung biopsy. FINDINGS: Three fluoroscopic spot images obtained. Fluoroscopy time 4.1 minute. Bronchoscope has been placed into the right lung. The examination was performed by Dr. Goodson.
--- NOTE | 2018-08-08 09:43 | RAD REPORT ---
EXAM DESCRIPTION: Lora Single View08/08/2018 9:37 am CLINICAL HISTORY: Bronchoscopy/shortness of breath COMPARISON: June 14, 2018 FINDINGS: A pneumothorax is not seen status post bronchoscopy
[2018-08-08 10:13] VITALS: BP 108/50; O2SAT 93
--- NOTE | 2018-08-10 08:03 | P.OP ---
Date of Service: 08/08/18 (Bronchoscopy with a transbronchial biopsy of the right upper lobe and BAL) Findings and Operative Technique Patient is 57 years of age evaluated by me for a diffuse interstitial lung disease and bilateral ground-glass changes has a reason for bronchoscopy After obtaining informed consent from the patient in the present for in my off a she was premedicated by anesthesia. Findings normal vocal cords normal trachea normal farideh normal right and left- sided bronchial anatomy no endobronchial lesions visible Multiple biopsies were obtained from the right upper lobe including a BAL patient tolerated the procedure very well did not experience any hypertension or arrhythmias postoperative chest x-ray did not show any evidence of pneumothorax patient to follow up in my office
== END 2018-08-08 10:00 | disposition home or self-care (01) ==
LOC: OR 06:56
PROVIDERS: ATTEND Internal Medicine Sleep Medicine
PROC: 0B9C8ZX Drainage of Right Upper Lung Lobe, Via Natural or Artificial Opening Endoscopic, Diagnostic (ICD-10-PCS; 2018-08-08)
PROC: 0BDC8ZX Extraction of Right Upper Lung Lobe, Via Natural or Artificial Opening Endoscopic, Diagnostic (ICD-10-PCS; principal; 2018-08-08 08:00)
DX: J84.9 Interstitial pulmonary disease, unspecified (principal); J44.9 Chronic obstructive pulmonary disease, unspecified; G47.33 Obstructive sleep apnea (adult) (pediatric); K21.9 Gastro-esophageal reflux disease without esophagitis; F41.9 Anxiety disorder, unspecified; F32.9 Major depressive disorder, single episode, unspecified
CPT/HCPCS: 71045; 76000; 88108; 88305; J1720; J2250; J2370; J2704; J3010